=== PATIENT | female | born 1955 | race Caucasian/White ===

== ENCOUNTER → 2023-08-14 14:12 | Outpatient (REF) | payer MEDICARE, SELFPAY | LOC: WDC 14:12 | PROVIDERS: ATTENDING PHYSICIAN Family Medicine | DX: Z13.820 Encounter for screening for osteoporosis (principal); Z12.31 Encounter for screening mammogram for malignant neoplasm of breast; Z78.0 Asymptomatic menopausal state | CPT/HCPCS: 77063; 77067; 77080 ==

== ENCOUNTER 2024-07-30 06:18 | Day surgery (SDC) | payer MEDICARE, SELFPAY | END 2024-07-30 15:41 | disposition home or self-care (01) | LOC: GI 06:18 | PROVIDERS: ATTENDING PHYSICIAN Internal Medicine | DX: Z12.11 Encounter for screening for malignant neoplasm of colon (principal); K57.30 Diverticulosis of large intestine without perforation or abscess without bleeding; K63.5 Polyp of colon | CPT/HCPCS: 45380; 88305 ==

== ENCOUNTER → 2024-08-24 10:30 | Outpatient (REF) | payer MEDICARE, SELFPAY | LOC: WDC 10:30 | PROVIDERS: ATTENDING PHYSICIAN Family Medicine | DX: Z12.31 Encounter for screening mammogram for malignant neoplasm of breast (principal) | CPT/HCPCS: 77063; 77067 ==